=== PATIENT | female | born 1995 | race Caucasian/White ===

== ENCOUNTER 2016-07-25 21:11 | Emergency (ER) | payer OTHER ==
[2016-07-25 21:21] VITALS: BP 113/69
[2016-07-25] MEDS ORDERED: Phenazopyridine TAB* 100 MG PO ONE (21:40)
[2016-07-25] MEDS ORDERED: Sulfamethox/Trimethoprim DS 800/160* TAB PO ONE (21:40)
--- NOTE | 2016-07-25 21:56 | UC ---
Complaint Female HPI - HPI Summary HPI Summary: PATIENT PRESENTS TO WITH CC OF UTI SYMPTOMS. SHE ENDORSES URGENCY, FREQUENCY , BURNING. DENIES FEVER OR BACK PAIN. SHE HAS HAD A UTI IN THE PAST, AND STATES THIS FEELS SIMILAR. SHE NOTES TO SOME SPECKS OF BLOOD IN THE URINE. DENIES OTHER SYMPTOMS. SHE IS ON OCP'S, BUT TAKES NO OTHER MEDICATION. SYMPTOMS HAVE BEEN BECOME WORSE. SHE NOTES TO CLOUDY URINE. - History Of Current Complaint Chief Complaint: UCGU Stated Complaint: POSS UTI Time Seen by Provider: 07/25/16 21:19 Hx Obtained From: Patient Hx Last Menstrual Period: one week ago ?: No Onset/Duration: Sudden Onset Timing: Constant Severity Initially: Mild Severity Currently: Moderate Pain Intensity: 5 Pain Scale Used: 0-10 Numeric Character: Burning Aggravating Factor(s): Nothing Alleviating Factor(s): Nothing - Risk Factors Ectopic Risk Factor: Negative Ovarian Torsion Risk Factor: Negative - Allergies/Home Medications Allergies/Adverse Reactions: Allergies Allergy/AdvReac Type Severity Reaction Status Date / Time Penicillins [PCN] Allergy Rash Verified 07/25/16 21:21 PMH/Surg Hx/FS Hx/Imm Hx Previously Healthy: Yes - Surgical History Surgical History: None - Family History Known Family History: Positive: None - Social History Occupation: Unemployed Lives: With Family Alcohol Use: Rare Substance Use Type: None Smoking Status (MU): Never Smoked Tobacco Review of Systems Constitutional: Negative Skin: Negative Respiratory: Negative Cardiovascular: Negative Genitourinary: Dysuria, Hematuria, Frequency, Urgency Motor: Negative Neurovascular: Negative Musculoskeletal: Negative Neurological: Negative All Other Systems Reviewed And Are Negative: Yes Physical Exam Triage Information Reviewed: Yes Appearance: Well-Appearing, No Pain Distress, Well-Nourished Vital Signs: Initial Vital Signs Temp 97.2 F 07/25/16 21:18 Pulse 65 07/25/16 21:18 Resp 18 07/25/16 21:18 BP 113/69 07/25/16 21:18 Pulse Ox 100 07/25/16 21:18 Vital Signs Reviewed: Yes Eye Exam: Normal Eyes: Positive: Conjunctiva Clear Neck exam: Normal Neck: Positive: Supple, No Lymphadenopathy Respiratory Exam: Normal Respiratory: Positive: Chest non-tender, Lungs clear, Normal breath sounds Cardiovascular Exam: Normal Cardiovascular: Positive: RRR Abdomen Description: Positive: Nontender Bowel Sounds: Positive: Present Musculoskeletal Exam: Normal Musculoskeletal: Positive: Strength Intact, ROM Intact Neurological: Positive: Alert Psychological: Positive: Normal Response To Family, Age Appropriate Behavior Skin Exam: Normal Complaint Female Dx - Course Course Of Treatment: PATIENT UA SHOWS 2+ LEUKS AND 3+ RBC. WILL TREAT WITH BACTRIM AND PYRIDIUM. DENIES FEVER OR BACK PAIN. PATIENT TO RETURN IF SYMPTOMS PERSIST. - Differential Dx/Diagnosis Differential Diagnosis/HQI/PQRI: Ovarian Cyst, Ovarian Torsion, Pelvic Inflammatory Disease, Urinary Tract Infection Provider Diagnoses: UTI Discharge - Discharge Plan Condition: Stable Disposition: HOME Prescriptions: Phenazopyridine TAB* [Pyridium 100 mg TAB*] 100 mg PO TID #21 tab MDD 3 Sulfamethox/Trimethoprim DS* [Bactrim DS 800/160 TAB*] 1 tab PO BID #6 tab MDD 2 Patient Education Materials: Urinary Tract Infection in Women (ED) Referrals: No Primary Care Phys,NOPCP [Primary Care Provider] - Additional Instructions: Discharge Dx. Urinary Tract Infection Drink plenty of fluids. Supplement with cranberry or tan juice. You may also take an over the counter cranberry supplement. If you have any questions about this, you may ask your pharmacist. If your symptoms have not improved in 1-2 days, if you develop fever, sweats or chills, please go to your emergency room, or call your PCP. Antibiotics were prescribed to you. Please take as directed. Supplement with over the counter probiotics on the opposite schedule of your antibiotic to prevent secondary infections. Do not take together as they may counteract each other. Pyridium: This medication is used to treat pain, burning, increased urination, and increased urge to urinate. These symptoms are usually caused by infection, injury, surgery, catheter, or other conditions that irritate the lower urinary tract. Pyridium will treat the symptoms of a urinary tract infection, but this medication does not treat the actual infection. Take the antibiotic that your doctor prescribes to treat your infection. Pyridium will most likely darken the color of your urine to an orange or red color. This is a normal effect and is not cause for alarm unless you have other symptoms such as pale or yellowed skin, fever, stomach pain, nausea, and vomiting. Darkened urine may also cause stains to your underwear, which may or may not be removed by laundering. It can also permanently stain soft contact lenses, and you should not wear them while taking this medicine.
== END 2016-07-25 21:47 | disposition home or self-care (01) ==
LOC: UCEAST 21:11
DX: N39.0 Urinary tract infection, site not specified (principal); R31.9 Hematuria, unspecified; Z88.0 Allergy status to penicillin
CPT/HCPCS: 81003; 87086; 99212; A9270-GY; G0463

== ENCOUNTER 2016-08-24 07:51 | Emergency (ER) | payer OTHER ==
[2016-08-24 08:02] VITALS: BP 93/64
--- NOTE | 2016-08-24 23:25 | UC ---
belkis Josue Timothy, scribed for Shiela Smith MD on 08/24/16 at 0824 . Eye Complaint HPI - HPI Summary HPI Summary: Kiera Garcia is a 21 yo female presenting to [facility] with left eye redness, 2/10 irritation, and slight yellow drainage since this morning. Pt had contact lenses in when she noticed her Sx, and has since removed them. She denies any itching, CP, SOB, N/V/D, abd pain, REILLY. She has had a cough for the past week. Her MHx includes wisdom teeth removal. - History of Current Complaint Chief Complaint: UCEye Stated Complaint: EYE COMPLAINT Time Seen by Provider: 08/24/16 08:15 Hx Obtained From: Patient Hx Last Menstrual Period: 08/15/16 Onset/Duration: Sudden Onset, Lasting Hours, Still Present Timing: Constant Severity Initially: Moderate Severity Currently: Moderate Pain Intensity: 2 Pain Scale Used: 0-10 Numeric Location of Injury: Conjunctiva - left Associated Signs And Symptoms: Positive: Drainage (Purulent) - yellow - Allergies/Home Medications Allergies/Adverse Reactions: Allergies Allergy/AdvReac Type Severity Reaction Status Date / Time Penicillins [PCN] Allergy Rash Verified 08/24/16 07:57 PMH/Surg Hx/FS Hx/Imm Hx Previously Healthy: Yes - Surgical History Surgical History: Yes Surgery Procedure, Year, and Place: WISDOM TEETH - Family History Known Family History: Positive: Cardiac Disease Negative: Hypertension, Diabetes - Social History Alcohol Use: Occasionally Substance Use Type: None Smoking Status (MU): Never Smoked Tobacco Review of Systems Constitutional: Negative Skin: Negative Eyes: Drainage - yellow, Eye Redness - left ENT: Negative Respiratory: Cough Cardiovascular: Negative Gastrointestinal: Negative Genitourinary: Negative Motor: Negative Neurovascular: Negative Musculoskeletal: Negative Neurological: Negative Psychological: Negative All Other Systems Reviewed And Are Negative: Yes Physical Exam Triage Information Reviewed: Yes Vital Signs: Initial Vital Signs Temp 98.8 F 08/24/16 07:58 Pulse 67 08/24/16 07:58 Resp 18 08/24/16 07:58 BP 93/64 08/24/16 07:58 Pulse Ox 100 08/24/16 07:58 Vital Signs Reviewed: Yes - Additional Comments Constitutional: Pt is awake, A&Ox3, in no acute distress,and cooperative. HENT: atraumatic, RILEY, normal TMs and canals bilaterally with no discharge. The nose shows no discharge or lesions. Both conjunctiva are injected and erythematous, the left worse than the right. Cornea's are clear. Fundi are benign. Throat: pink, no purulence, teeth in good repair. Moist oral mucosa. Neck: supple, no masses, subtle adenopathy. No JVD, no thyromegaly. Respiratory: Lungs CTA bilaterally Cardiovascular: RRR, no murmur. Abd: soft, nontender, no masses, no organomegaly, Bowel Sounds: present and normal Musculoskeletal: Full ROM, good color to extremities, good tone, power 5/5 in all extremities Neuro: AOx3, cooperative, coherent Skin: clear, good turgor Eye Complaint Course/Dx - Course Course Of Treatment: Kiera Garcia is a 21 yo female presenting to [facility] with left eye redness, 2/10 irritation, and slight yellow discharge. After clinical examination, she will be discharged home with bilateral conjunctivitis with appropriate instructions. - Differential Dx/Diagnosis Differential Diagnosis/HQI/PQRI: Conjunctivitis Provider Diagnoses: acute conjunctivitis Discharge - Discharge Plan Condition: Stable Disposition: HOME Prescriptions: Gentamicin 0.3% OPHTH.SOLN* 1 drop BOTH EYES Q4H #1 btl Patient Education Materials: Conjunctivitis (ED) Referrals: [facility] [Outside] Additional Instructions: Please follow up with the primary care physician provided regarding your visit to urgent care today. Apply one drop of the prescribed medication to each eye every 4 hours for the next 7 days. Do not wear your contact lenses until the treatment is complete. Dispose of any substances that have made contact with your eyes including contacts and make up. Return to urgent care or the emergency department with any new or recurring symptoms. The documentation as recorded by the belkis yost Timothy accurately reflects the service I personally performed and the decisions made by , Shiela Smith MD.
== END 2016-08-24 08:38 | disposition home or self-care (01) ==
LOC: UCEAST 07:51
DX: H10.9 Unspecified conjunctivitis (principal); Z88.0 Allergy status to penicillin
CPT/HCPCS: 99212; G0463